=== PATIENT | female | born 1995 | race African-American/Black ===

== ENCOUNTER 2017-05-13 18:19 | Observation (INO) | payer OTHER ==
[~2017-05-13] VITALS: Ht 154.9 cm; Wt 50.3 kg
[2017-05-13] MEDS ORDERED: PNV1TABL76 PO (19:14)
[2017-05-13] MEDS ORDERED: IRON-1 PO (19:14)
[2017-05-13] MEDS: LACTATED RINGERS 1,000 ML IV SCH ×2 (20:24→21:29)
== END 2017-05-13 22:26 | disposition home or self-care (01) ==
LOC: L&D 18:19
PROVIDERS: ADMIT Obstetrics & Gynecology; ATTEND Obstetrics & Gynecology
DX: O26.893 Other specified pregnancy related conditions, third trimester (principal); R10.9 Unspecified abdominal pain; M54.5 Low back pain; Z3A.29 29 weeks gestation of pregnancy
CPT/HCPCS: 82731; 96360; 96361; G0378; J7120

== ENCOUNTER 2019-12-24 09:56 | Emergency (ER) | payer OTHER ==
[~2019-12-24] VITALS: Ht 154.9 cm; Wt 45.0 kg
[~2019-12-24 09:56] MED LIST: IRON-1 PO; PNV1TABL76 PO
[2019-12-24 09:57] VITALS: BP 113/79
[2019-12-24] MEDS ORDERED: ACETAMINOPHEN 325MG TABLET PO ONE (10:30)
[2019-12-24] MEDS ORDERED: LIDOCAINE HCL/EPINEPHRINE 1%-EPI 1:100,000 20 ML VIAL INFIL ONE (11:30)
== END 2019-12-24 11:50 | disposition home or self-care (01) ==
LOC: ER 09:56
DX: N75.0 Cyst of Bartholin's gland (principal); Z91.013 Allergy to seafood
CPT/HCPCS: 56420; 99284